=== PATIENT | male | born 1975 | race Caucasian/White ===

== ENCOUNTER 2016-08-30 08:54 | Emergency (ER) | payer OTHER ==
[~2016-08-30] VITALS: Ht 182.9 cm; Wt 170.0 kg
[~2016-08-30 08:54] MED LIST: HYDR25TA5 PO; LPT20 PO; OMEG120013 PO; TNR50 PO
[2016-08-30 08:58] VITALS: Ht 182.9 cm; Wt 170.0 kg
[2016-08-30] MEDS ORDERED: CYCLOBENZAPRINE HCL 5 MG TAB PO STA (09:17)
--- NOTE | 2016-08-30 09:26 | EMERGENCY ROOM VISIT NOTE ---
History Report prepared by Cornelius: Ray Lerner Under the Supervision of: Dr. Elizabeth Bach M.D. First contact with patient: 09:07 Chief Complaint: BACK PAIN Stated Complaint: SEVERE BACK PAIN History of Present Illness The patient is a 41 year old male who presents to the Emergency Room with complaints of worsening back pain that stared yesterday. He notes that the discomfort was in his low middle back and radiates to his front. The patient notes that yesterday his discomfort started as a soreness and got progressively worse as the day went on. Throughout the day, the discomfort started radiating into his groin. When he got home from work, he tried to lay down and relax. He noticed increasing discomfort in his back when he tried to get up. He notes that the pain was worse with certain movements like sitting up. This morning, it was even harder to sit up and then when he stood up he felt a shock through his back that started at his shoulders and went down to his knees. He also notes weakness in his right leg. The patient notes that every now and then he gets a bruise in the middle of his back for the past 8 years. He notes increasing soreness with his back when this bruise appears. He thinks that this bruise is starting to appear again currently. The patient has been having normal bowel movements and denies difficulty urinating or blood in his urine. He also denies chest pain, shortness of breath, or rash. He is on blood pressure medication and notes that he took his medications last night. Per patient, his blood pressure has been pretty well controlled recently. Source of History: patient Onset: yesterday Position: back (lower) Timing: worsening Modifying Factors (Worsening): movement Associated Symptoms: + weakness (right leg), No SOB, No chest pain, No rash , No urinary symptoms Note: Other associated symptoms: radiation to groin, bruise on back. Review of Systems See HPI for pertinent positives & negatives. A total of 10 systems reviewed and were otherwise negative. Past Medical & Surgical Medical Problems: (1) Diabetes (2) GERD (gastroesophageal reflux disease) (3) HTN (hypertension) (4) Lumbar degenerative disc disease (5) TIA (transient ischemic attack) Surgical Problems: (1) History of hand surgery (2) History of knee surgery Social History Problems: (1) Syncope Family History Diabetes mellitus FH: cancer FH: hypertension Heart disease Kidney stone Social History Smoking Status: Never Smoker Alcohol Use: occasionally Marital Status: Housing Status: lives with significant other Occupation Status: employed Current/Historical Medications Scheduled Aspirin (Aspirin Ec), 81 MG PO QAM Glipizide (Glipizide Er), 2.5 MG PO DAILY Lisinopril (Lisinopril), 40 MG PO DAILY Metformin Hcl (Glucophage), 1,000 MG PO BID Omeprazole (Prilosec), 20 MG PO DAILY Scheduled PRN Cyclobenzaprine Hcl (Flexeril), 1 TAB PO HS PRN for Muscle Spasms Tramadol (Ultram), 1 TAB PO TID PRN for Pain Miscellaneous Medications Naproxen (Aleve), 220 MG PO Allergies Coded Allergies: BEE STING (Verified Allergy, Unknown, SWELLING, 08/30/16) Mustard (Verified Adverse Reaction, Mild, vomiting, 08/30/16) Morphine (Verified Adverse Reaction, Unknown, PT STATES HE PANICS, PT HALLUCINATES, 08/30/16) Physical Exam Vital Signs Date Time Temp Pulse Resp B/P Pulse Ox O2 Delivery O2 Flow Rate FiO2 08/30/16 11:48 88 16 166/111 96 08/30/16 10:55 36.7 86 16 175/117 95 Room Air 08/30/16 08:58 36.6 78 20 184/121 97 Room Air Physical Exam Vital signs reviewed. General: Generally well-appearing male, in no significant distress. HEENT: No scleral icterus, PERRLA, neck supple. Atraumatic. Cardiovascular: Noted to be hypertensive, no extra sounds. Pulmonary: Clear to auscultation bilaterally, normal work of breathing. Abdomen: Soft, nontender, nondistended, positive bowel sounds. Musculoskeletal: Tender to palpation over the lumbar paraspinous muscles bilaterally. No CVA tenderness. 4/5 strength to right lower extremity with straight leg raise of quadriceps and hamstrings. Somewhat limited in range of motion due to body habitus. Neurologic: Patient awake alert and oriented x 3 Skin: Warm, dry, no rash Medical Decision & Procedures ER Provider Diagnostic Interpretation: X-ray results as stated below per interpretation by me and the radiologist: LUMBAR SPINE 5 VIEWS CLINICAL HISTORY: Low back pain. No reported history of trauma. FINDINGS: 5 views of lumbar spine are obtained. No prior studies are available for comparison at the time of dictation. The skeletal structures are well mineralized. There is no radiographic evidence of fracture or malalignment. Vertebral body height and alignment are maintained throughout the lumbar spine. The transverse and spinous processes appear intact. There is no evidence of spondylolysis. Anterior osteophytes are seen throughout. The intervertebral disc spaces appear maintained. Posterior disc osteophyte complexes are suggested at L3-L4 and L4-L5. Mild facet arthropathy is seen in the lower lumbar region. The bony pelvis is intact as visualized. There is a nonobstructed abdominal bowel gas pattern. IMPRESSION: 1. No acute bony abnormality is seen involving the lumbar spine. 2. Mild lumbosacral spondylosis as above. Electronically signed by: Víctor Edmondson M.D. 08/30/2016 10:28 AM Dictated Date/Time: 08/30/2016 10:09 AM Laboratory Results 08/30/16 09:38 Red Blood Count 5.32, Mean Corpuscular Volume 81.4, Mean Corpuscular Hemoglobin 28.2, Mean Corpuscular Hemoglobin Concent 34.6, Mean Platelet Volume 9.2, Neutrophils (%) (Auto) 48.9, Lymphocytes (%) (Auto) 40.4, Monocytes (%) (Auto) 7.9, Eosinophils (%) (Auto) 2.3, Basophils (%) (Auto) 0.4, Neutrophils # (Auto) 3.32, Lymphocytes # (Auto) 2.75, Monocytes # (Auto) 0.54, Eosinophils # (Auto) 0.16, Basophils # (Auto) 0.03 08/30/16 09:38 Test 08/30/16 09:38 08/30/16 09:50 White Blood Count 6.81 K/uL (4.8-10.8) Red Blood Count 5.32 M/uL (4.7-6.1) Hemoglobin 15.0 g/dL (14.0-18.0) Hematocrit 43.3 % (42-52) Mean Corpuscular Volume 81.4 fL (80-100) Mean Corpuscular Hemoglobin 28.2 pg (25-34) Mean Corpuscular Hemoglobin Concent 34.6 g/dl (32-36) Platelet Count 242 K/uL (130-400) Mean Platelet Volume 9.2 fL (7.4-10.4) Neutrophils (%) (Auto) 48.9 % Lymphocytes (%) (Auto) 40.4 % Monocytes (%) (Auto) 7.9 % Eosinophils (%) (Auto) 2.3 % Basophils (%) (Auto) 0.4 % Neutrophils # (Auto) 3.32 K/uL (1.4-6.5) Lymphocytes # (Auto) 2.75 K/uL (1.2-3.4) Monocytes # (Auto) 0.54 K/uL (0.11-0.59) Eosinophils # (Auto) 0.16 K/uL (0-0.5) Basophils # (Auto) 0.03 K/uL (0-0.2) RDW Standard Deviation 38.2 fL (36.4-46.3) RDW Coefficient of Variation 12.9 % (11.5-14.5) Immature Granulocyte % (Auto) 0.1 % Immature Granulocyte # (Auto) 0.01 K/uL (0.00-0.02) Anion Gap 7.0 mmol/L (3-11) Est Creatinine Clear Calc Drug Dose 181.1 ml/min Estimated GFR () 124.2 Estimated GFR (Non- 107.2 BUN/Creatinine Ratio 18.5 (10-20) Calcium Level 8.9 mg/dl (8.5-10.1) Magnesium Level 1.9 mg/dl (1.8-2.4) Total Bilirubin 0.3 mg/dl (0.2-1) Direct Bilirubin < 0.1 mg/dl (0-0.2) Aspartate Amino Transf (AST/SGOT) 36 U/L (15-37) Alanine Aminotransferase (ALT/SGPT) 99 U/L (12-78) Alkaline Phosphatase 65 U/L (45-117) Total Protein 8.0 gm/dl (6.4-8.2) Albumin 3.7 gm/dl (3.4-5.0) Urine Color YELLOW Urine Appearance CLEAR (CLEAR) Urine pH 6.5 (4.5-7.5) Urine Specific [place] 1.015 (1.000-1.030) Urine Protein NEG (NEG) Urine Glucose (UA) 3+ (NEG) Urine Ketones NEG (NEG) Urine Occult Blood NEG (NEG) Urine Nitrite NEG (NEG) Urine Bilirubin NEG (NEG) Urine Urobilinogen NEG (NEG) Urine Leukocyte Esterase NEG (NEG) Laboratory results per my review. Medications Administered Medications (Trade) Dose Ordered Sig/Ric Route Start Time Stop Time Status Last Admin Dose Admin Cyclobenzaprine HCl (Flexeril Tab) 10 mg STK-MED ONCE .ROUTE 08/30/16 09:31 08/30/16 09:34 DC 08/30/16 09:38 10 MG ED Course 0915: Past medical records reviewed. The patient was evaluated in room A10. A complete history and physical examination was performed. 930: Ordered Flexeril Tab 10 mg .ROUTE. 1048: At this time, I reevaluated the patient and discussed test findings with him. 1134: Upon reevaluation, the patient appeared to have improvement of his symptoms. I discussed findings with him. He verbalized agreement of the treatment plan. The patient was discharged home. Medical Decision Differential diagnosis: Etiologies such as musculoskeletal, disc herniation, fracture, aortic disease, metastatic disease, cord compression, discitis, infection, renal colic, gastrointestinal, acute exacerbation of chronic back pain, sciatica, cauda equina, as well as others were entertained. This pt was evaluated and appeared to be in no distress. Pt had increased pain when lying flat. PE is c/w lumbar radiculopathy. XR lumbar spine are unrevealing. Pt was feeling improved after oral flexeril. He is diabetic and steroids are going to cause blood glucose issues. Pt did not want pain medication. We discussed an MRI, which he will likely need. He will require an open MRI d/t body habitus. Pt was d/c to f/u with PCP. Weight loss and PT are recommended. He was d/c to his 's care and will return to the ED for worsening of symptoms or any medical concerns. Impression Primary Impression: Lumbar back pain with radiculopathy affecting right lower extremity Scribe Attestation The scribe's documentation has been prepared under my direction and personally reviewed by me in its entirety. I confirm that the note above accurately reflects all work, treatment, procedures, and medical decision making performed by me. Departure Information Dispostion Home / Self-Care Referrals Lowell Bustos M.D. (PCP) Forms HOME CARE DOCUMENTATION FORM, IMPORTANT VISIT INFORMATION Patient Instructions My [facility] Additional Instructions Diagnosis: Lumbar back pain Please follow-up with your primary care physician this week for reevaluation. Continue your pain medication and Flexeril as prescribed. Do not drive while taking these medications. Warm compresses and gentle stretching. Return to the ER for worsening of symptoms or any medical concerns.
[2016-08-30] MEDS ORDERED: NAPR1TAB9 PO (09:30)
[2016-08-30] MEDS ORDERED: TRAM-10 PO (09:30)
[2016-08-30] MEDS ORDERED: CYCLOBENZAPRINE HCL 10 MG TAB ONE (09:31)
[2016-08-30 09:55] LABS: BASO % 0.4 %; BASO ABS # 0.03 K/uL (0-0.2); COMPLETE YES; EOS % 2.3 %; HEMATOCRIT 43.3 % (42-52); IG% 0.1 %; LYMPH % 40.4 %; LYMPH ABS # 2.75 K/uL (1.2-3.4); MEAN CELL VOLUME 81.4 fL (80-100); MEAN CORPUSCULAR HEMOGLOBIN 28.2 pg (25-34); MEAN CORPUSCULAR HGB CONC 34.6 g/dl (32-36); MEAN PLATELET VOLUME 9.2 fL (7.4-10.4); MONO % 7.9 %; NEUT % 48.9 %; PLATELET COUNT 242 K/uL (130-400); RED BLOOD COUNT 5.32 M/uL (4.7-6.1); WHITE BLOOD COUNT 6.81 K/uL (4.8-10.8)
[2016-08-30 10:09] LABS: ALT/SGPT 99 U/L (12-78); BLOOD UREA NITROGEN 16 mg/dl (7-18); BUN/CREATININE RATIO 18.5 (10-20); CALCIUM 8.9 mg/dl (8.5-10.1); CARBON DIOXIDE 28 mmol/L (21-32); CHLORIDE 103 mmol/L (98-107); CREATININE 0.87 mg/dl (0.60-1.40); GLUCOSE 207 mg/dl (70-99); MAGNESIUM 1.9 mg/dl (1.8-2.4); POTASSIUM 4.3 mmol/L (3.5-5.1); SODIUM 138 mmol/L (136-145)
[2016-08-30 10:12] LABS: ALKALINE PHOSPHATASE 65 U/L (45-117); AST/SGOT 36 U/L (15-37)
--- NOTE | 2016-08-30 10:30 | DIAGNOSTIC IMAGING REPORT ---
LUMBAR SPINE 5 VIEWS CLINICAL HISTORY: Low back pain. No reported history of trauma. FINDINGS: 5 views of lumbar spine are obtained. No prior studies are available for comparison at the time of dictation. The skeletal structures are well mineralized. There is no radiographic evidence of fracture or malalignment. Vertebral body height and alignment are maintained throughout the lumbar spine. The transverse and spinous processes appear intact. There is no evidence of spondylolysis. Anterior osteophytes are seen throughout. The intervertebral disc spaces appear maintained. Posterior disc osteophyte complexes are suggested at L3-L4 and L4-L5. Mild facet arthropathy is seen in the lower lumbar region. The bony pelvis is intact as visualized. There is a nonobstructed abdominal bowel gas pattern. IMPRESSION: 1. No acute bony abnormality is seen involving the lumbar spine. 2. Mild lumbosacral spondylosis as above. Electronically signed by: Víctor Edmondson M.D. 08/30/2016 10:28 AM Dictated Date/Time: 08/30/2016 10:09 AM
[2016-08-30 10:51] LABS: MANUAL MICROSCOPIC REQUIRED? NO; URINE APPEARANCE CLEAR (CLEAR); URINE BILIRUBIN NEG (NEG); URINE COLOR YELLOW; URINE NITRITE NEG (NEG); URINE PH 6.5 (4.5-7.5); URINE SPECIFIC GRAVITY 1.015 (1.000-1.030); UROBILINOGEN NEG (NEG)
[2016-08-30 10:55] VITALS: TEMP 36.7
[2016-08-30 11:01] LABS: REVIEW REQ? NO
[2016-08-30 11:30] LABS: ZZUR CULT IF INDIC CLEAN CATCH NO
[2016-08-30 11:48] VITALS: BP 166/111; PULSE 88; O2SAT 96
[2017-03-09] MEDS ORDERED: GLIP2.5T11 PO (06:06)
[2017-03-09] MEDS ORDERED: CYCL5TAB PO (09:30)
[2017-03-09] MEDS ORDERED: ASPI81TA28 PO (09:50)
== END 2016-08-30 11:49 | disposition home or self-care (01) ==
LOC: C.EDB 08:55 → C.EDA 11:49
DX: M54.16 Radiculopathy, lumbar region (principal); M62.81 Muscle weakness (generalized); I10 Essential (primary) hypertension; E11.9 Type 2 diabetes mellitus without complications; K21.9 Gastro-esophageal reflux disease without esophagitis; M51.36 Other intervertebral disc degeneration, lumbar region; Z79.82 Long term (current) use of aspirin; Z83.3 Family history of diabetes mellitus; Z82.49 Family history of ischemic heart disease and other diseases of the circulatory system; Z84.1 Family history of disorders of kidney and ureter

== ENCOUNTER 2017-03-09 19:48 | Emergency (ER) | payer OTHER ==
[~2017-03-09] VITALS: Ht 182.9 cm; Wt 170.9 kg
[~2017-03-09 19:48] MED LIST changes: +ASPI81TA28 PO; +CYCL5TAB PO; +GLIP2.5T11 PO; -HYDR25TA5 PO; -LPT20 PO; +NAPR1TAB9 PO; -OMEG120013 PO; -TNR50 PO; +TRAM-10 PO
[2017-03-09 19:51] VITALS: Ht 182.9 cm; Wt 170.9 kg
[2017-03-09] MEDS ORDERED: METF-384 PO (20:05)
[2017-03-09] MEDS ORDERED: OMEP20CA9 PO (20:07)
[2017-03-09] MEDS ORDERED: LSN40 PO (20:07)
[2017-03-09] MEDS ORDERED: KETOROLAC TROMETHAMINE 30 MG/ML VIAL IV STA (20:32)
[2017-03-09] MEDS ORDERED: ONDANSETRON INJ 2 MG/ML 2 ML VIAL IV STA (20:32)
[2017-03-09] MEDS ORDERED: OPTIRAY 320 IV PRN (20:45)
[2017-03-09] MEDS ORDERED: SODIUM CHLORIDE 0.9% 1000ML 1,000 ML IV ONE (20:45)
[2017-03-09] MEDS ORDERED: COLC1TAB25 PO (21:27)
[2017-03-09] MEDS ORDERED: NAPR500T3 PO (21:27)
[2017-03-09] MEDS ORDERED: TPRSR/50 PO (21:27)
[2017-03-09] MEDS ORDERED: GABA1CAP4 PO (21:27)
[2017-03-09 21:42] LABS: BASO % 0.3 %; BASO ABS # 0.03 K/uL (0-0.2); COMPLETE YES; EOS % 1.4 %; HEMATOCRIT 45.4 % (42-52); IG% 0.3 %; LYMPH % 33.2 %; LYMPH ABS # 3.18 K/uL (1.2-3.4); MEAN CELL VOLUME 84.5 fL (80-100); MEAN CORPUSCULAR HEMOGLOBIN 27.4 pg (25-34); MEAN CORPUSCULAR HGB CONC 32.4 g/dl (32-36); MEAN PLATELET VOLUME 9.3 fL (7.4-10.4); MONO % 11.1 %; NEUT % 53.7 %; PLATELET COUNT 221 K/uL (130-400); RED BLOOD COUNT 5.37 M/uL (4.7-6.1); WHITE BLOOD COUNT 9.59 K/uL (4.8-10.8)
[2017-03-09] MEDS ORDERED: DEXAMETHASONE SOD INJ 4 MG/ML VIAL IV STA (21:56)
[2017-03-09 22:13] LABS: BUN/CREATININE RATIO 10.4 (10-20); CREATININE 1.4 mg/dl (0.60-1.40); POTASSIUM 4.1 mmol/L (3.5-5.1)
[2017-03-09 22:17] VITALS: TEMP 37.1
[2017-03-09 22:22] LABS: BETA-HYDROXYBUTYRATE 0.92 mg/dL (0.2-2.81)
[2017-03-09] MEDS ORDERED: AMOXICIL/CLAVU 875MG HOME PACK PO ONE (23:52)
[2017-03-10] MEDS ORDERED: AMOXICIL/CLAVU 875MG HOME PACK PO ONE
[2017-03-10] MEDS ORDERED: PRED20TA2 PO ×2 (00:01→00:45)
[2017-03-10] MEDS ORDERED: AMOX875T PO ×2 (00:01→00:45)
[2017-03-10 00:24] VITALS: BP 155/90; PULSE 78; O2SAT 96
--- NOTE | 2017-03-10 05:20 | DIAGNOSTIC IMAGING REPORT ---
SOFT TISSUE NECK WITH CLINICAL HISTORY: 41 years-old Male presenting with sore throat, difficulty swallowing, fever, voice changes. TECHNIQUE: Multidetector CT of the neck was performed after the administration of intravenous contrast. IV contrast: 92 mL of Optiray 320. A dose lowering technique was used consistent with the principles of ALARA (as low as reasonably achievable). COMPARISON: None. CT DOSE (mGy.cm): The estimated cumulative dose is 1049.69 mGy.cm. FINDINGS: Aids Nurse topogram: Unremarkable. The peripharyngeal fat planes are preserved. Paranasal sinuses and mastoid air cells clear. Nasopharynx, oral cavity, oropharynx, hypopharynx, larynx are patent without suspicious nodularity. The tonsils and peritonsillar region are normal. No evidence of abscess. Scattered subcentimeter cervical lymph nodes, which are not pathologically enlarged. Normal thyroid. Limited intracranial evaluation within normal limits. Orbits normal. Vessels patent. Peribronchovascular consolidation in the left upper lobe. Mild degenerative change of the lower cervical spine. IMPRESSION: 1. Peribronchovascular consolidation in the left upper lobe consistent with pneumonia. Complete imaging of the chest should be considered. 2. Notably, no evidence of tonsillar/peritonsillar inflammatory change. This is discrepant from the preliminary interpretation. The report will be called/faxed according to standard departmental protocol. Electronically signed by: Lowell Sales M.D. 03/10/2017 5:19 AM Dictated Date/Time: 03/10/2017 5:14 AM
--- NOTE | 2017-03-10 15:02 | EMERGENCY ROOM VISIT NOTE ---
ED Visit Note First contact with patient: 19:58 Chief Complaint: I have a sore throat. History of Present Illness: Mr. Lu is a 41-year-old white male who ambulates into the ED accompanied by his complaining of throat pain and cough. Patient reports his symptoms started approximately 2 weeks ago after his daughter came home from preschool with a sore throat. She was seen and was diagnosed with a pharyngitis and placed on antibiotic therapy and her symptoms have subsequently resolved. Patient reports his symptoms started mildly and he was only having a mild sore throat for approximately 1.5 weeks. During that process he developed some nasal congestion and a mild nonproductive cough. Mode last 4 days he reports she's been having increasing pain and difficulty swallowing in the throat. On the first day of his course he also had a fever that has subsequently resolved. Currently he describes his throat discomfort as a fullness sensation that becomes sharp with swallowing. He rates his discomfort 8/10. His pain is nonradiating. His pain worsens when he attempts to talk or swallow. He has not identified any alleviating factors related to the pain. He reports he has been attempting to take [id number] medications but has had difficulty because every time he attempts to swallow he has an increase in pain but feels like he cannot get the medication down because of the swelling sensation in the back of his throat. Associated with his pain he reports she's been having a mildly productive cough. Cough is productive of a yellowish sputum. He is also noted when he tries to clear his throat and spit there is a small amount of blood present in this material. The blood is described as bright red. Lastly he has noted that over the last 24 hours he has lost most of his voice and it becomes painful to talk. He denies any current fevers, skin eruptions, skin color changes, headache, dizziness, lightheadedness, hearing changes, visual changes, neck stiffness/pain , shortness of breath, wheezing, chest discomfort, hemoptysis, palpitations, orthopnea, dependent edema, previous clots, claudication, abdominal pain, nausea /vomiting. Review of Systems: As noted above in history of present illness. All body systems were reviewed and found to be negative as noted above. Past Medical History: Diabetes, heart disease, hypertension, chronic back pain, unspecified knee surgery. Current Medications: Medications Dose Route/Sig Max Daily Dose Days Date Category Dose Instructions Gabapentin 300 Mg Cap 300 Mg PO TID 03/09/17 Reported Colchicine 0.6 Mg Tab 0.6 Mg PO PRN 03/09/17 Reported Naproxen 500 Mg Tab 500 Mg PO PRN UD 03/09/17 Reported Metoprolol Succinate ER (Metoprolol Succinate) 50 Mg Tabcr 50 Mg PO DAILY 03/09/17 Reported Flexeril (Cyclobenzaprine Hcl) 5 Mg Tab 1 Tab PO HS PRN 30 08/30/16 Reported Prilosec (Omeprazole) 20 Mg Cap 20 Mg PO DAILY 12/01/15 Reported Lisinopril 40 Mg Tab 40 Mg PO DAILY 12/01/15 Reported Glucophage (Metformin Hcl) 1,000 Mg Tab 1,000 Mg PO BID 12/01/15 Reported Glipizide Er (Glipizide) 2.5 Mg Tab 2.5 Mg PO DAILY 06/18/15 Reported Aspirin Ec (Aspirin) 81 Mg Tab 81 Mg PO QAM 05/05/15 Reported Allergies to Medications: Morphine. Social History: Patient is currently employed; he feels safe in his home environment; he denies tobacco and alcohol use. Physical Examination: Vital Signs: Date Time Temp Pulse Resp B/P (MAP) Pulse Ox O2 Delivery O2 Flow Rate FiO2 03/10/17 00:24 78 20 155/90 96 03/09/17 22:17 37.1 109 18 144/105 95 Room Air 03/09/17 19:51 94 Room Air 03/09/17 19:51 37.7 106 18 162/89 94 Room Air GENERAL: 41-year-old male in moderate distress due to symptoms, nontoxic- appearing, febrile and hemodynamically stable. NEUROLOGICAL: Awake, alert and oriented to person, place and time. Answering questions appropriately and following commands. SKIN: Warm, moist and pink. No soft tissue eruptions or trauma noted. HEENT: Atraumatic and normocephalic. No erythema or tenderness over the frontal or maxillary sinuses. External ears are nontender. Auditory canals are pink and patent. Tympanic membranes were normal with no bulging or erythema. PERRLA. Sclera white and conjunctiva pink without drainage. No drainage from naris with audible congestion. Oral cavity moist and pink. Airway is patent. Should be noted that patient is very obese and has a large anterior neck. I was able to see the tonsillar arches and the superior aspect of the tonsils and they were erythematous and edematous. I did not appreciate any exudative material on the tonsils. Patient's voices whispered. Once again because of the bulk of his neck I did appreciate left-sided anterior chain cervical lymphadenopathy. Mild laryngeal tenderness. Trachea was midline. BACK: No tenderness over the bony cervical and thoracic spine. Full range of motion of the cervical spine. No nuchal rigidity or meningismus. THORAX: Lungs sounds are clear to auscultation but was slightly decreased in the upper lobes. Equal bilaterally with symmetrical chest wall. No wheezing, rales or rhonchi. No crepitus, tenderness, subcutaneous air or deformities noted. HEART: Tachycardic rate and rhythm. No gallops, rubs or murmurs are appreciated. ABDOMEN: Obese soft and nontender. Positive bowel sounds in all quadrants. No guarding, rigidity or organomegaly. EXTREMITIES: Moves all extremities well on command and with purpose. All distal neurovascular statuses are intact and equal bilaterally. No calf tenderness or cords. ED Course: Patient is assessed as noted above. Patient's medication list was reviewed. Laboratory Testing: Test 03/09/17 21:30 Range/Units White Blood Count 9.59 4.8-10.8 K/uL Red Blood Count 5.37 4.7-6.1 M/uL Hemoglobin 14.7 14.0-18.0 g/dL Hematocrit 45.4 42-52 % Mean Corpuscular Volume 84.5 80-100 fL Mean Corpuscular Hemoglobin 27.4 25-34 pg Mean Corpuscular Hemoglobin Concent 32.4 32-36 g/dl Platelet Count 221 130-400 K/uL Mean Platelet Volume 9.3 7.4-10.4 fL Neutrophils (%) (Auto) 53.7 % Lymphocytes (%) (Auto) 33.2 % Monocytes (%) (Auto) 11.1 % Eosinophils (%) (Auto) 1.4 % Basophils (%) (Auto) 0.3 % Neutrophils # (Auto) 5.16 1.4-6.5 K/uL Lymphocytes # (Auto) 3.18 1.2-3.4 K/uL Monocytes # (Auto) 1.06 0.11-0.59 K/uL Eosinophils # (Auto) 0.13 0-0.5 K/uL Basophils # (Auto) 0.03 0-0.2 K/uL RDW Standard Deviation 40.5 36.4-46.3 fL RDW Coefficient of Variation 13.2 11.5-14.5 % Immature Granulocyte % (Auto) 0.3 % Immature Granulocyte # (Auto) 0.03 0.00-0.02 K/uL Sodium Level 133 136-145 mmol/L Potassium Level 4.1 3.5-5.1 mmol/L Chloride Level 98 98-107 mmol/L Carbon Dioxide Level 24 21-32 mmol/L Anion Gap 11.0 3-11 mmol/L Blood Urea Nitrogen 15 7-18 mg/dl Creatinine 1.40 0.60-1.40 mg/dl Est Creatinine Clear Calc Drug Dose 112.9 ml/min Estimated GFR () 71.8 Estimated GFR (Non- 62.0 BUN/Creatinine Ratio 10.4 10-20 Random Glucose 315 70-99 mg/dl Calcium Level 9.0 8.5-10.1 mg/dl Beta-Hydroxybutyric Acid 0.92 0.2-2.81 mg/dL Monoscreen NEG NEG Group A Streptococcus Screen: Negative. Culture pending. Soft Tissue Neck CT: Was reviewed by myself and read by the radiologist showing a subtle ill-defined low attenuation in the (he tonsillar region, cannot exclude phlegmon or early abscess and left upper lobe infiltrate consistent with pneumonia, unremarkable epiglottitis and a patent airway. Patient was hydrated with normal saline; he received 30 mg of Toradol IV for pain, 4 mg of Zofran IV for nausea and 10 mg of Decadron IV for inflammation. Patient was given 875 mg of Augmentin by mouth to start his antibiotic course prior to departure. Patient was reassessed multiple times during his stay in the emergency department. Patient's case was reviewed with Dr. Sims; we agreed on diagnostic approach, treatment, disposition and plan. Patient was educated about today's findings and instructed on his treatment plan ; he verbalized understanding and agreement with this plan. Clinical Impression: Left her tonsillar abscess. Left upper lobe pneumonia. Decision-Making: Initially my differential diagnosis I considered tonsillitis, pharyngitis for multiple causes, tonsillar abscess, epiglottitis, other deep space infections and other causes. Disposition: Patient discharged home in stable condition accompanied by his ; prior to departure he was reassessed and subjectively reported he was feeling much better. He rated his throat discomfort 2/10. He felt like he could speak much easier oriented was not having any significant amount of pain while speaking. Plan: Patient was encouraged to alternate ibuprofen and acetaminophen every 3 hours as needed for pain or fevers. Patient was prescribed Augmentin 875 mg 2 times a day for total of 10 days. Patient was placed on prednisone 60 mg once a day for 4 days. Patient was encouraged to stay well-hydrated. Patient is encouraged to continue his other medication then to check his blood sugars 3-4 times a day and expected to be elevated. Patient is encouraged to follow-up with his PCP and request a reevaluation appointment and possible referral to ENT for peritonsillar abscess. Patient is encouraged return ED for worsening symptoms, uncontrolled pain, uncontrolled fevers, vomiting, shortness of breath/wheezing or any new/ concerning symptoms.
== END 2017-03-10 00:26 | disposition home or self-care (01) ==
LOC: C.EDB 19:50 → C.EDD 03-10 00:26
DX: J36 Peritonsillar abscess (principal); J18.9 Pneumonia, unspecified organism; R59.0 Localized enlarged lymph nodes; R05 Cough; E11.9 Type 2 diabetes mellitus without complications; I10 Essential (primary) hypertension; G89.29 Other chronic pain; M54.5 Low back pain; Z79.82 Long term (current) use of aspirin; Z79.84 Long term (current) use of oral hypoglycemic drugs; Z79.899 Other long term (current) drug therapy; Z86.79 Personal history of other diseases of the circulatory system